=== PATIENT | male | born 1945 | race American Indian/Alaskan Native ===

== ENCOUNTER 2020-09-09 15:27 | Emergency (ER) | payer MEDICARE, OTHER ==
[2020-09-09 15:34] VITALS: BP 179/60
--- NOTE | 2020-09-09 18:59 | Event Note ---
ED Screening Note ED Screening Note: states his HR has been 40-50 on his cellphone states he sees Dr. Holt denies any CP or SOB states he has mild lightheadedness states he is on metoprolol 50 mg BID states he had one episode where he felt like his heart was beating slow This initial assessment/diagnostic orders/clinical plan/treatment(s) is/are subject to change based on patients health status, clinical progression and re- assessment by fellow clinical providers in the ED. Further treatment and workup at subsequent clinical providers discretion. Patient/guardian urged not to elope from the ED as their condition may be serious if not clinically assessed and managed. Initial orders include: labs, EKG
[2020-09-09 19:53] LABS: Basophils # (Auto) 0.1 K/mm3 (0.0-0.1); Basophils % (Auto) 0.9 % (0.0-1.8); Eosinophils # (Auto) 0.1 K/mm3 (0.0-0.4); Eosinophils % (Auto) 0.8 % (0.0-4.3); Hematocrit 43.3 % (35.5-45.6); Hemoglobin 14.3 gm/dl (11.8-15.2); Lymphocytes % (Auto) 22.7 % (13.4-35.0); Mean Corpuscular HGB Conc 33 % (32-34); Mean Corpuscular Volume 96 fl (84-94); Monocytes # (Auto) 0.7 K/mm3 (0.0-0.8); Monocytes % (Auto) 5.7 % (0.0-7.3); Platelet Count 287 K/mm3 (140-440); Red Blood Count 4.53 M/mm3 (3.65-5.03); Red Cell Distribution Width 16.3 % (13.2-15.2)
[2020-09-09 20:11] LABS: Albumin 4.2 g/dL (3.9-5); Calcium 9.8 mg/dL (8.4-10.2)
--- NOTE | 2020-09-11 17:06 | Electrocardiograph Report ---
[facility] Test Date: 2020-09-09 Test Time: 15:36:40 Pat Name: PAUL PRIDE Department: Room: Gender: M Career Representative: KELLEY : 1945 Requested By: MALLY SOLARES III Order Number: [id number] Reading MD: Abhay Sánchez Measurements Intervals [place] Rate: 101 P: 64 NE: 155 QRS: -57 QRSD: 95 T: -1 QT: 364 QTc: 473 Interpretive Statements Sinus tachycardia Ventricular bigeminy Probable left atrial enlargement Probable anterior infarct, old No previous ECG available for comparison Electronically Signed On 09-11-2020 17:05:40 EDT by Abhay Sánchez
== END 2020-09-09 21:01 | disposition left against medical advice (07) ==
LOC: ED 15:27
DX: R00.1 Bradycardia, unspecified (principal); Z53.21 Procedure and treatment not carried out due to patient leaving prior to being seen by health care provider
CPT/HCPCS: 36415; 80053; 82550; 83735; 84443; 85025; 93005